=== PATIENT | male | born 1985 | race Caucasian/White ===

== ENCOUNTER 2016-12-21 18:03 | Emergency (ER) | payer OTHER ==
[2016-12-21 20:11] VITALS: BP 124/76
--- NOTE | 2016-12-21 21:00 | ED ---
Throat Pain/Nasal Congestion - HPI Summary HPI Summary: 31 male presents with complaints of jaw pain that has been on going for years ever since breaking his jaw. The pain has seemed to increase over the past few days and he is worried about an infection. He states about a month ago he was seen at his PCP who gave him an antibiotic but was unable to fill it due to insurance issues. He has a surgery planned with an oral surgeon. He has tried taking Ibuprofen that did give him some relief. Admits to some swelling. The pain is diffuse throughout mouth but is worse on the right side. Denies difficulty breathing, trouble swallowing, bleeding, discharge and fever/chills. - History of Current Complaint Chief Complaint: EDDentalPain Time Seen by Provider: 12/21/16 20:40 Hx Obtained From: Patient Onset/Duration: Gradual Onset, Lasting Days, Worse Since Severity: Moderate Associated Signs And Symptoms: Positive: Negative - Allergies/Home Medications Allergies/Adverse Reactions: Allergies Allergy/AdvReac Type Severity Reaction Status Date / Time No Known Allergies Allergy Verified 06/25/16 14:49 PMH/Surg Hx/FS Hx/Imm Hx Endocrine/Hematology History: Denies: Hx Anemia Cardiovascular History: Denies: Hx Hypertension Respiratory History: Denies: Hx Asthma - Surgical History Surgery Procedure, Year, and Place: Right sided jaw ORIF 2005 Infectious Disease History: No Infectious Disease History: Denies: Traveled Outside the [place] in Last 30 Days - Family History Known Family History: Positive: Other - mother has COPD - Social History Alcohol Use: Rare Hx Substance Use: No Substance Use Type: Reports: None Smoking Status (MU): Light Every Day Tobacco Smoker Review of Systems Constitutional: Negative Eyes: Negative Cardiovascular: Negative Respiratory: Negative Gastrointestinal: Negative Musculoskeletal: Negative Skin: Negative Neurological: Negative Psychological: Normal All Other Systems Reviewed And Are Negative: Yes Physical Exam Triage Information Reviewed: Yes Vital Signs On Initial Exam: Initial Vitals Temp Pulse Resp BP Pulse Ox 98.3 F 88 18 142/80 100 12/21/16 18:33 12/21/16 18:33 12/21/16 18:33 12/21/16 18:33 12/21/16 18:33 Vital Signs Reviewed: Yes Appearance: Positive: Well-Appearing - sitting on stretcher holding jaw, No Pain Distress, Well-Nourished Skin: Positive: Warm, Skin Color Reflects Adequate Perfusion, Dry Head/Face: Positive: Normal Head/Face Inspection Eyes: Positive: Normal, Conjunctiva Clear ENT: Positive: Hearing grossly normal, Pharynx normal, TMs normal, Dental tenderness Dental: Positive: Gross Decay/Caries @, Dental Fracture @, Other - tenderness on palpation of lower jaw both left and right side, more so on right. slight edema of right cheek noted. no abscess, erythema noted. 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 Negative: Abscess @, Cellulitis @, Cervical Lymphadenopathy, Bleeding Neck: Positive: Supple, Nontender, No Lymphadenopathy Respiratory/Lung Sounds: Positive: Clear to Auscultation, Breath Sounds Present Cardiovascular: Positive: Normal, RRR, Pulses are Symmetrical in both Upper and Lower Extremities Neurological: Positive: Normal, Sensory/Motor Intact, Alert, Oriented to Person Place, Time Psychiatric: Positive: Normal Diagnostics - Vital Signs Vital Signs Temp Pulse Resp BP Pulse Ox 12/21/16 19:40 97.8 F 76 16 124/76 98 12/21/16 18:33 98.3 F 88 18 142/80 100 - Laboratory Lab Statement: Any lab studies that have been ordered have been reviewed, and results considered in the medical decision making process. EENT Course/Dx - Course Course Of Treatment: patient will be given dose of antibiotic and ibuprofen to help with pain. scripts will be sent. educated on worsening signs and symptoms. told to follow up with dentist. - Differential Diagnoses Differential Diagnoses: Dental Abscess, Dental Caries, Fractured Tooth, Periodontic Disease, TMJ Syndrome - Diagnoses Provider Diagnoses: Jaw pain, Dental caries Discharge - Discharge Plan Condition: Stable Disposition: HOME Patient Education Materials: Toothache (ED), Dental Abscess (ED) Additional Instructions: Take medication as prescribed for pain and inflammation. Heating compresses may help. Follow up with your dentist for further evaluation and to ensure proper treatment. If symptoms worsen such as increased pain, difficulty breathing, edema, discharge or persist please seek medical attention promptly.
[2016-12-21] MEDS ORDERED: Ibuprofen TAB* 600 MG PO ONE (21:05)
[2016-12-21] MEDS ORDERED: Penicillin VK TAB* 250 MG PO ONE (21:06)
== END 2016-12-21 21:34 | disposition home or self-care (01) ==
LOC: ED 18:03
DX: R68.84 Jaw pain (principal); K02.9 Dental caries, unspecified; F17.210 Nicotine dependence, cigarettes, uncomplicated
CPT/HCPCS: 99281; A9270-GY

== ENCOUNTER 2017-01-01 21:11 | Emergency (ER) | payer OTHER ==
[2017-01-01 21:30] VITALS: BP 142/32
[2017-01-01] MEDS ORDERED: HYDROcodone/ACETAMIN 5-325 MG* 1 TAB PO ONE (21:53)
--- NOTE | 2017-01-01 22:09 | ED ---
Throat Pain/Nasal Congestion - HPI Summary HPI Summary: Patient arrives to ED with CC of pain over entire mouth radiating to the jaw and ear post-extraction of full upper and lower teeth 6 days ago. Denies trismus, drooling or dysphagia. Pain is 10/10, sharp and throbbing. Denies airway compromise or SOB. Denies ear pain, eye pain, blurry vision or double vision. Otherwise healthy. Pain is worse with chewing and cold drinks, better with ibuprofen, but only improves slightly. Patient denies dental care for several years. Has been unable to reach his surgeon for three days and states he is out of pain medication. - History of Current Complaint Chief Complaint: EDDentalPain Time Seen by Provider: 01/01/17 21:31 Hx Obtained From: Patient Onset/Duration: Sudden Onset Severity: Worse Since: - running out of pain meds Associated Signs And Symptoms: Positive: Negative - Epiglottits Risk Factors Epiglottis Risk Factors: Negative - Allergies/Home Medications Allergies/Adverse Reactions: Allergies Allergy/AdvReac Type Severity Reaction Status Date / Time No Known Allergies Allergy Verified 06/25/16 14:49 PMH/Surg Hx/FS Hx/Imm Hx Previously Healthy: Yes Endocrine/Hematology History: Denies: Hx Anemia Cardiovascular History: Denies: Hx Hypertension Respiratory History: Denies: Hx Asthma - Surgical History Surgery Procedure, Year, and Place: Right sided jaw ORIF 2005 Infectious Disease History: No Infectious Disease History: Denies: Traveled Outside the [place] in Last 30 Days - Family History Known Family History: Positive: Other - mother has COPD - Social History Occupation: Employed Full-time Lives: With Family Alcohol Use: Rare Hx Substance Use: No Substance Use Type: Reports: None Hx Tobacco Use: Yes Smoking Status (MU): Light Every Day Tobacco Smoker Review of Systems Constitutional: Negative Eyes: Negative Positive: Dental Pain Cardiovascular: Negative Respiratory: Negative Musculoskeletal: Negative Neurological: Negative Psychological: Normal All Other Systems Reviewed And Are Negative: Yes Physical Exam Triage Information Reviewed: Yes Vital Signs On Initial Exam: Initial Vitals Temp Pulse Resp BP Pulse Ox 96.7 F 108 16 142/32 99 01/01/17 21:27 01/01/17 21:27 01/01/17 21:27 01/01/17 21:27 01/01/17 21:27 Vital Signs Reviewed: Yes Appearance: Positive: Well-Nourished, Pain Distress Skin: Positive: Warm, Skin Color Reflects Adequate Perfusion Head/Face: Positive: Normal Head/Face Inspection, TMJ Tenderness Eyes: Positive: EOMI, EDILBERTO, Conjunctiva Clear ENT: Positive: Pharynx normal, TMs normal Dental: Positive: Percussion Tenderness @ - upper and lower mandible - s/p full mouth upper and lower tooth extraction last week, Gross Decay/Caries @ - broken teeth noted Neck: Positive: Supple, No Lymphadenopathy Respiratory/Lung Sounds: Positive: Breath Sounds Present Cardiovascular: Positive: Normal Musculoskeletal: Positive: Normal, Strength/ROM Intact Neurological: Positive: Normal, Sensory/Motor Intact Psychiatric: Positive: Normal AVPU Assessment: Alert - [place] Coma Scale Best Eye Response: 4 - Spontaneous Best Motor Response: 6 - Obeys Commands Best Verbal Response: 5 - Oriented Diagnostics - Vital Signs Vital Signs Temp Pulse Resp BP Pulse Ox 01/01/17 21:27 96.7 F 108 16 142/32 99 - Laboratory Lab Statement: Any lab studies that have been ordered have been reviewed, and results considered in the medical decision making process. EENT Course/Dx - Course Course Of Treatment: Patient s/p full upper and lower teeth extraction x6 days ago comes today with pain not controlled with ibuprofen. He has been attempting to contact his oral surgeon for 3 days without luck. He was originally prescribed vicodin which helped the pain, but is now out of meds and would like to receive more. He is currently on amoxicillin 4x daily. Gums are slightly erythematous from post-extraction, no abscesses or infection noted. - Differential Diagnoses Differential Diagnoses: Dental Abscess, Dental Caries, Periodontic Abscess, Periodontic Disease, Post-Extraction Pain - Diagnoses Provider Diagnoses: Status post tooth extraction Discharge - Discharge Plan Condition: Stable Disposition: HOME Prescriptions: Hydrocodone/Acetamin 10/325(NF [[place] 10/325 (NF)] 1 tab PO Q6H #16 tab MDD 4 Patient Education Materials: Toothache (ED) Referrals: Kaley Diaz MD [Primary Care Provider] - Additional Instructions: DO NOT SMOKE. Follow up with your surgeon. Call until you are able to get ahold of him. You have been diagnosed with dental pain post-extraction. Salt water rinses several times per day will improve healing time. Ibuprofen 600mg three times daily with meals for discomfort. If pain is not controlled with Ibuprofen, you may use hydrocodone on opposite schedule of ibuprofen. Follow up with a dentist for routine care to prevent recurrence of infections. If fever, worsening pain or swelling develops, see your PCP, dentist or come back to the Emergency Department.
== END 2017-01-01 22:07 | disposition home or self-care (01) ==
LOC: ED 21:11
DX: K08.409 Partial loss of teeth, unspecified cause, unspecified class (principal); K08.89 Other specified disorders of teeth and supporting structures; F17.210 Nicotine dependence, cigarettes, uncomplicated
CPT/HCPCS: 99282

== ENCOUNTER 2017-01-26 18:19 | Emergency (ER) | payer MEDICAID, OTHER ==
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
[2017-01-26 21:11] VITALS: BP 120/84
== END 2017-01-26 21:10 | disposition home or self-care (01) ==
LOC: ED 18:19
DX: M79.661 Pain in right lower leg (principal); M25.571 Pain in right ankle and joints of right foot; F17.200 Nicotine dependence, unspecified, uncomplicated
CPT/HCPCS: 99282

== ENCOUNTER → 2017-04-17 18:33 | Emergency (ER) | payer MEDICAID ==
[2017-04-17 21:15] VITALS: BP 109/66
--- NOTE | 2017-04-21 09:27 | ED ---
Influenza-Like Illness - HPI Summary HPI Summary: Patient presents with one day of cough, sore throat and runny nose. No fever, chills or headache. He denies N/V/D. - History of Current Complaint Chief Complaint: EDThroatPain Time Seen by Provider: 04/17/17 20:49 Hx Obtained From: Patient Onset/Duration: Gradual Onset Severity: Mild Associated Signs & Symptoms: Cough, Sore Throat, Nasal Congestion Related Hx: Possible Flu/Infectious Exposure - Allergy/Home Medications Allergies/Adverse Reactions: Allergies Allergy/AdvReac Type Severity Reaction Status Date / Time No Known Allergies Allergy Verified 01/26/17 18:26 PMH/Surg Hx/FS Hx/Imm Hx Previously Healthy: Yes Endocrine/Hematology History: Denies: Hx Anemia Cardiovascular History: Denies: Hx Hypertension Respiratory History: Denies: Hx Asthma - Surgical History Surgery Procedure, Year, and Place: Right sided jaw ORIF 2005 Infectious Disease History: No Infectious Disease History: Denies: Traveled Outside the [place] in Last 30 Days - Family History Known Family History: Positive: None - Social History Occupation: Employed Full-time Lives: With Family Alcohol Use: Rare Hx Substance Use: No Substance Use Type: Reports: None Hx Tobacco Use: Yes Smoking Status (MU): Light Every Day Tobacco Smoker Cessation Counseling: Patient Advised to Stop Review of Systems Negative: Fever, Chills Positive: Sore Throat, Nasal Discharge Positive: Cough All Other Systems Reviewed And Are Negative: Yes Physical Exam Triage Information Reviewed: Yes Vital Signs On Initial Exam: Initial Vitals Temp Pulse Resp BP Pulse Ox 97.6 F 82 20 120/70 97 04/17/17 19:22 04/17/17 19:22 04/17/17 19:22 04/17/17 19:22 04/17/17 19:22 Vital Signs Reviewed: Yes Appearance: Positive: Well-Appearing, No Pain Distress, Well-Nourished Skin: Positive: Warm, Skin Color Reflects Adequate Perfusion, Dry, Soft Head/Face: Positive: Normal Head/Face Inspection Eyes: Positive: EOMI, EDILBERTO, Conjunctiva Clear ENT: Positive: Hearing grossly normal, Pharyngeal erythema, TMs normal. Negative: Tonsillar swelling, Tonsillar exudate, Trismus, Muffled/hoarse voice Neck: Positive: Supple, Nontender, No Lymphadenopathy Respiratory/Lung Sounds: Positive: Clear to Auscultation, Breath Sounds Present Cardiovascular: Positive: RRR Musculoskeletal: Negative: Edema Left, Edema Right Neurological: Positive: Sensory/Motor Intact, Alert, Oriented to Person Place, Time, [place] Bundle Intact Distally, Normal Gait Psychiatric: Positive: Affect/Mood Appropriate AVPU Assessment: Alert Diagnostics - Vital Signs Vital Signs Temp Pulse Resp BP Pulse Ox 04/17/17 21:15 98.7 F 60 15 109/66 04/17/17 21:13 98.7 F 60 15 109/66 100 04/17/17 19:22 97.6 F 82 20 120/70 97 - Laboratory Lab Results: Lab Results 04/17/17 Range/Units 20:40 Group A Strep Rapid Negative (Negative) Lab Statement: Any lab studies that have been ordered have been reviewed, and results considered in the medical decision making process. Flu Symptom Course/Dx - Diagnoses Differential Diagnosis/HQI/PQRI: Positive: Bronchitis, Influenza, Pneumonia, Upper Respiratory Infection Provider Diagnoses: Viral syndrome Discharge - Discharge Plan Condition: Stable Disposition: HOME Patient Education Materials: Viral Syndrome (ED) Referrals: Kaley Diaz MD [Primary Care Provider] -
== END | disposition home or self-care (01) ==
LOC: ED 18:33
DX: B34.9 Viral infection, unspecified (principal); J02.9 Acute pharyngitis, unspecified; R05 Cough; F17.210 Nicotine dependence, cigarettes, uncomplicated
CPT/HCPCS: 87651; 99281

== ENCOUNTER → 2017-05-10 20:21 | Emergency (ER) | payer MEDICAID ==
[2017-05-10 20:25] VITALS: BP 118/67
== END | disposition left against medical advice (07) ==
LOC: ED 20:21
DX: M79.642 Pain in left hand (principal); Z53.21 Procedure and treatment not carried out due to patient leaving prior to being seen by health care provider

== ENCOUNTER 2017-06-18 21:41 | Emergency (ER) | payer OTHER ==
[2017-06-18 21:59] VITALS: BP 110/57
[2017-06-18] MEDS ORDERED: Sulfamethox/Trimethoprim DS 800/160* TAB PO ONE (22:37)
--- NOTE | 2017-06-18 22:42 | ED ---
Skin Complaint - HPI Summary HPI Summary: Pt here w/ skin irritation, redness and soreness over Rt calf. Has had multiple rash areas since fleas are in the house - reports many "pimple like" sores over LE's prior to current redness and irritation. Denies fever, chills, N/V, chest pain, shortness of breath. H/o sores needing to be lanced - unsure if he's has MRSA, staph, etc. Tetanus is UTD. No other areas of concern. - History of Current Complaint Chief Complaint: EDRashSkinAbscess Time Seen by Provider: 06/18/17 22:25 Stated Complaint: RT CALF SWELLING & PAIN Hx Obtained From: Patient Pain Intensity: 5 - Allergy/Home Medications Allergies/Adverse Reactions: Allergies Allergy/AdvReac Type Severity Reaction Status Date / Time No Known Allergies Allergy Verified 01/26/17 18:26 PMH/Surg Hx/FS Hx/Imm Hx Previously Healthy: Yes Endocrine/Hematology History: Denies: Hx Anemia, Autoimmune Disease Cardiovascular History: Denies: Hx Hypertension Respiratory History: Denies: Hx Asthma - Surgical History Surgery Procedure, Year, and Place: Right sided jaw ORIF 2005 - Immunization History Immunizations Up to Date: Yes Infectious Disease History: Denies: Hx of Known/Suspected MRSA - h/o skin infections - organism unknown, Traveled Outside the [place] in Last 30 Days - Family History Known Family History: Positive: Other - mom- thyroid dz - Social History Occupation: Unemployed Lives: With Family Alcohol Use: None - last drink 1 year ago Hx Substance Use: No Substance Use Type: Reports: None Hx Tobacco Use: Yes Smoking Status (MU): Current Every Day Smoker Amount Used/How Often: 1 PPD Review of Systems Constitutional: Negative Negative: Fever, Chills, Fatigue Cardiovascular: Negative Negative: Chest Pain Respiratory: Negative Negative: Shortness Of Breath Gastrointestinal: Negative Negative: Vomiting, Nausea Positive: no symptoms reported Musculoskeletal: Negative Negative: Arthralgia, Myalgia, Decreased ROM, Edema Positive: Rash - see HPI Neurological: Negative Psychological: Normal All Other Systems Reviewed And Are Negative: Yes Physical Exam Triage Information Reviewed: Yes Vital Signs On Initial Exam: Initial Vitals Temp Pulse Resp BP Pulse Ox 97.8 F 61 18 110/57 99 06/18/17 21:54 06/18/17 21:54 06/18/17 21:54 06/18/17 21:54 06/18/17 21:54 Vital Signs Reviewed: Yes Appearance: Positive: Well-Appearing - unkempt, poor hygiene, No Pain Distress, Well-Nourished Skin: Positive: Warm, Dry - multiple erythematous scabbed papules over B/L LE's - a few scant pustules on an erythematous base - area of concern on Rt calf is w / superficial wide spread erythema (mild) - no induration, NTTP Head/Face: Positive: Normal Head/Face Inspection Eyes: Positive: EOMI ENT: Positive: Hearing grossly normal Respiratory/Lung Sounds: Positive: Breath Sounds Present Cardiovascular: Positive: Pulses are Symmetrical in both Upper and Lower Extremities Musculoskeletal: Positive: Normal, Strength/ROM Intact Neurological: Positive: Normal, Sensory/Motor Intact, Alert, Oriented to Person Place, Time, CN Intact II-III Psychiatric: Positive: Normal Diagnostics - Vital Signs Vital Signs Temp Pulse Resp BP Pulse Ox 06/18/17 21:54 97.8 F 61 18 110/57 99 - Laboratory Lab Statement: Any lab studies that have been ordered have been reviewed, and results considered in the medical decision making process. Course/Dx - Diagnoses Provider Diagnoses: Folliculitis, Cellulitis Discharge - Discharge Plan Condition: Stable Disposition: HOME Prescriptions: Sulfamethox/Trimethoprim DS* [Bactrim DS 800/160 TAB*] 1 tab PO BID #20 tab Patient Education Materials: Cellulitis (ED), Folliculitis (ED) Referrals: Kaley iDaz MD [Primary Care Provider] - Additional Instructions: Wash areas daily with soap and water - dry with clean cloth Complete antibiotics as directed Treat fleas in home as directed - you have reported a plan to address this today Follow-up with PCP in 3 days for wound recheck *If you develop fever, chills, chest pain, shortness of breath, nausea, vomiting , return to ED
== END 2017-06-18 22:52 | disposition home or self-care (01) ==
LOC: ED 21:41
DX: L73.9 Follicular disorder, unspecified (principal); R21 Rash and other nonspecific skin eruption; F17.210 Nicotine dependence, cigarettes, uncomplicated; L03.90 Cellulitis, unspecified
CPT/HCPCS: 99281; A9270-GY